=== PATIENT | male | born 1980 | race African-American/Black ===

== ENCOUNTER 2018-05-05 16:45 | Emergency (ER) | payer SELFPAY ==
[~2018-05-05] VITALS: Ht 172.7 cm; Wt 84.0 kg
[~2018-05-05 16:45] MED LIST: BACTRIM DS1 TAB OR; BACTRIM DS1 TAB PO; CIPRO500 MG OR; DOXYCYCL HYC100 MG PO; FLEXERIL OR; FLEXERIL PO; INSULIN; LORTAB 10 OR; LORTAB 5 OR; LORTAB 5-325 MG1 TAB PO; LORTAB5 PO; LOVASTATIN10 M1 PO; MAXEPA1000 M1 PO; MEDDOSEPAK OR; METFORMIN1000 MG PO; NAPROSYN500 MG PO; NAPROXEN375 MG OR; NEURONTIN300 MG PO; NO HOME MEDS; PERCOCET 5/325M1 TAB PO; TRAMADOL HCL50 MG PO; ULTRAM50 M1 PO; ULTRAM50 MG OR
[2018-05-05] MEDS ORDERED: CEPHALEXIN500 M1 PO (17:14)
[2018-05-05] MEDS ORDERED: BACTRIM DS1 TAB PO (17:14)
[2018-05-05 17:41] VITALS: BP 141/89
[2018-05-06] MEDS ORDERED: NOVOLIN 70/30 SC ×2 (17:03)
== END 2018-05-05 17:41 | disposition home or self-care (01) | DRG 603 ==
LOC: ED 16:45
PROC: 0H9NXZZ Drainage of Left Foot Skin, External Approach (ICD-10-PCS; principal; 2018-05-05)
DX: L02.612 Cutaneous abscess of left foot (principal); E11.9 Type 2 diabetes mellitus without complications; F17.200 Nicotine dependence, unspecified, uncomplicated; B95.1 Streptococcus, group B, as the cause of diseases classified elsewhere; B96.89 Other specified bacterial agents as the cause of diseases classified elsewhere

== ENCOUNTER 2018-05-06 16:16 | Emergency (ER) | payer SELFPAY ==
[~2018-05-06] VITALS: Ht 172.7 cm; Wt 84.0 kg
[~2018-05-06 16:16] MED LIST changes: +CEPHALEXIN500 M1 PO
[2018-05-06 16:56] VITALS: BP 147/92
[2018-05-06] MEDS ORDERED: NOVOLIN 70/30 SC ×2 (17:03)
== END 2018-05-06 17:05 | disposition left against medical advice (07) | DRG 951 ==
LOC: ED 16:16
DX: Z91.19 Patient's noncompliance with other medical treatment and regimen (principal)

== ENCOUNTER 2018-05-07 14:56 | Emergency (ER) | payer SELFPAY ==
[~2018-05-07] VITALS: Ht 172.7 cm; Wt 82.0 kg
[~2018-05-07 14:56] MED LIST changes: +NOVOLIN 70/30 SC
[2018-05-07 15:35] VITALS: BP 141/90
== END 2018-05-07 15:35 | disposition home or self-care (01) | DRG 951 ==
LOC: ED 14:56
DX: Z48.00 Encounter for change or removal of nonsurgical wound dressing (principal)

== ENCOUNTER 2019-06-08 13:01 | Emergency (ER) | payer SELFPAY ==
[~2019-06-08] VITALS: Ht 172.7 cm; Wt 70.0 kg
[2019-06-08] MEDS ORDERED: BACTRIM DS1 TAB PO (13:59)
[2019-06-08] MEDS ORDERED: CEPHALEXIN500 MG PO (13:59)
[2019-06-08 14:28] VITALS: BP 141/61
== END 2019-06-08 14:28 | disposition home or self-care (01) | DRG 603 ==
LOC: ED 13:01
DX: L02.01 Cutaneous abscess of face (principal)

== ENCOUNTER 2024-06-23 12:01 | Day surgery (SDC) | payer OTHER ==
[~2024-06-23 12:01] MED LIST changes: +CEPHALEXIN500 MG PO; +LIDOCAINE HCL 2% 2ML SDV IV ONE; +MOTRIN800 MG PO; +PROPOFOL 200 MG/20 ML VIAL IV ONE
[2024-06-23] MEDS ORDERED: FAMOTIDINE 10MG/ML 2ML SDV IV ONE (12:10)
[2024-06-23] MEDS ORDERED: LACTATED RINGER'S 1,000 ML IV ONE ×2 (12:10→14:58)
[2024-06-23] MEDS ORDERED: ceFAZolin Sodium 2 GM/VIAL SDV ONE (12:10)
[2024-06-23] MEDS ORDERED: SODIUM CHLORIDE 0.9% 100 ML IV ONE (12:11)
[2024-06-23] MEDS ORDERED: STERILE WATER FOR IRRIGATION 1,000 ML BTL IR ONE (13:57)
[2024-06-23] MEDS ORDERED: SODIUM CHLORIDE 1,000 ML BTL IR ONE (13:57)
[2024-06-23] MEDS ORDERED: BUPIVACAINE HCL PF 0.5% 30 ML VIAL ONE (13:57)
[2024-06-23 15:33] VITALS: BP 139/82
== END 2024-06-23 15:49 | disposition home or self-care (01) | DRG 989 ==
LOC: ORM 12:01
PROVIDERS: ATTEND Urology
PROC: 0VB50ZZ Excision of Scrotum, Open Approach (ICD-10-PCS; principal; 2024-06-23)
DX: L72.0 Epidermal cyst (principal); F17.200 Nicotine dependence, unspecified, uncomplicated
CPT/HCPCS: J0690

== ENCOUNTER 2024-09-14 16:21 | Emergency (ER) | payer OTHER ==
[~2024-09-14] VITALS: Ht 172.7 cm; Wt 68.0 kg
[~2024-09-14 16:21] MED LIST changes: -LIDOCAINE HCL 2% 2ML SDV IV ONE; -PROPOFOL 200 MG/20 ML VIAL IV ONE
[2024-09-14 17:10] VITALS: BP 137/86
[2024-09-14 17:30] VITALS: BP 134/99
[2024-09-14] MEDS ORDERED: ERYTHROMYCIN O3.5 GM OS (17:36)
[2024-09-14] MEDS ORDERED: BACTRIM DS1 TAB PO (17:36)
[2024-09-14 17:38] VITALS: BP 143/99
[2024-09-14 17:41] VITALS: BP 143/99
== END 2024-09-14 17:40 | disposition home or self-care (01) | DRG 125 ==
LOC: ED 16:21
DX: H10.9 Unspecified conjunctivitis (principal); E11.9 Type 2 diabetes mellitus without complications; F17.200 Nicotine dependence, unspecified, uncomplicated